=== PATIENT | male | born 1955 | race Caucasian/White ===

== ENCOUNTER 2020-03-09 08:46 | Outpatient (REF) | payer BC, SELFPAY | END 2020-03-09 08:47 | disposition home or self-care (01) | LOC: HO.HMGCLDS 08:46 | PROVIDERS: PCP Internal Medicine; Visit Provider Internal Medicine | DX: Z20.822 Contact with and (suspected) exposure to COVID-19 (principal) | CPT/HCPCS: 36415; C9803; U0003 ==

== ENCOUNTER 2023-08-21 08:09 | Outpatient (AMB) | payer MEDICARE, SELFPAY ==
--- NOTE | 2023-08-21 08:28 | MHC.OFFWIV ---
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 Pt went swimming over the weekend in [place]. Denies fevers, chills, nausea or vomiting. PFSH Social History Patient Tobacco Use Status: Never used Tobacco Review of Systems Const All systems reviewed & are unremarkable except as noted in HPI and below Physical Exam Vital Signs: Last Vital Signs Temp 98.6 F 08/21/23 08:31 Pulse 76 08/21/23 08:31 BP 150/82 H 08/21/23 08:31 Pulse Ox 98 08/21/23 08:31 Oxygen Delivery Method Room Air 08/21/23 08:31 BMI result Body Mass Index 40.3 Const General: comfortable and no acute distress Orientation/consciousness: patient oriented x3 HEENT Head: Yes normocephalic Ears: external ears normal, TM normal on the left and TM abnormal bulging on the right, wth effusion, erythematous on the right, with fluid behind the TM on the right and retracted on the right General nose exam: Normal nasal mucous membranes and turbinates present Mouth: moist mucous membranes Neuro General: patient oriented x3, gait normal and moves all extremities Psych Speech and movement: Normal speech and movement present Assessment & Plan Assessment & Plan (1) Otitis externa: Code(s): H60.90 - Unspecified otitis externa, unspecified ear Qualifiers: Otitis externa type: swimmer's ear Chronicity: acute Laterality: right Qualified Code(s): H60.331 - Swimmer's ear, right ear Plan: Acetaminophen for pain relief Used medication as directed. Medications: New [id number]-BG 3.5-10,000-1 mg/mL-unit/mL-% 4 drps otic (ear) left Q8H 10 days 10 mL 0RF H60.331 - Swimmer's ear, right ear Coding Level of Care Code New Pt Level 3 (60820) Diagnoses Acute swimmer's ear of right side H60.331 Otitis externa type: swimmer's ear Chronicity: acute Laterality: right Time Spent (min) 15
[2023-08-21 08:31] VITALS: BP 150/82; PULSE 76; TEMP 37; O2SAT 98; BMI 40.3
== END 2023-08-21 09:10 | disposition home or self-care (01) ==
PROVIDERS: PCP Internal Medicine; Visit Provider Nurse Practitioner Family
DX: H60.331 Swimmer's ear, right ear (principal)
CPT/HCPCS: 99203